=== PATIENT | female | born 1935 | race Caucasian/White ===

== ENCOUNTER 2017-07-25 04:32 | Emergency (ER) | payer OTHER ==
[~2017-07-25] VITALS: Ht 180.3 cm; Wt 71.2 kg
--- NOTE | 2017-07-25 04:40 | NUR ---
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 PER PT GRANDSON STATES PT ALTERED, LAST WELL KNOWN TIME WAS MIDNIGHT. FIELD BS 170. PT IS AAOX3. R FOREARM ABRASION NOTED. BACK OF HEAD BRUISING AND SWELLING NOTED. PT NOTED TO BE HARD OF HEARING. PT NOTED TO BE MOVING A LOT AND UNABLE TO FOLLOW SIMPLE COMMANDS. VSS. RESP EVEN AND UNLABORED. PT SAFETY AND COMFORT MEASURES IN PLACE. PT GOWNED AND PLACED ON MONITOR. BEDSIDE FOR EVAL.
--- NOTE | 2017-07-25 04:41 | NUR ---
PHLEBOTOMY BEDSIDE TO COLLECT BLOOD SPECIMEN.
--- NOTE | 2017-07-25 04:41 | NUR ---
PT STATES "MY STOMACH HURTS, ITS TENDER". PT NOTED TO BE GRIMACING AND RUBBING HER LOWER QUADRANTS OF THE ABD. MD LABOY MADE AWARE.
--- NOTE | 2017-07-25 04:50 | NUR ---
BLANKETS PROVIDED TO PT
[2017-07-25] MEDS ORDERED: CEFAZOLIN 1 GM ONE (04:57)
--- NOTE | 2017-07-25 04:58 | NUR ---
PER MD LABOY, OKAY GIVEN TO START ANTIBIOTICS WITHOUT PRIOR COLLECTION OF URINE.
[2017-07-25] MEDS ORDERED: CEFAZOLIN 1 GM in IV D5W 50 ML IV ONE (05:00)
[2017-07-25] MEDS ORDERED: IV NS 0.9% 500 ML BAG IV ONE (05:00)
--- NOTE | 2017-07-25 05:04 | NUR ---
CALLED RADIOLOGY FOR CT/ XR
[2017-07-25 05:06] LABS: BASOPHILS # (AUTO) 0.1 /CMM (0.0-0.2); BASOPHILS % (AUTO) 1.1 % (0.0-2.0); EOSINOPHILS % (AUTO) 2.9 % (0.0-6.0); HEMATOCRIT 36 % (33-45); HEMOGLOBIN 11.9 g/dL (11.5-14.8); LYMPHOCYTES % (AUTO) 22.2 % (20.0-44.0); MEAN CORPUSCULAR HGB CONC 33 g/dl (31.0-36.0); MEAN CORPUSCULAR VOLUME 87 fL (82-100); MONOCYTES # (AUTO) 0.9 /CMM (0.1-1.30); MONOCYTES % (AUTO) 10.5 % (2.0-12.0); NEUTROPHILS # (AUTO) 5.6 /CMM (1.8-8.9); NEUTROPHILS % (AUTO) 63.3 % (43.0-81.0); PLATELET COUNT (AUTO) 281 /CMM (150-450); RDW COEFFICIENT OF VARIATION 14.9 (11.5-15.0); RED BLOOD CELL COUNT(AUTO) 4.13 MIL/uL (4.0-5.2); WHITE BLOOD COUNT (AUTO) 8.9 K/uL (4.3-11.0)
--- NOTE | 2017-07-25 05:10 | NUR ---
PER MD LBAOY, URINE SAMPLE NOT REQUIRED AT THIS TIME.
[2017-07-25 05:17] LABS: CALCIUM, SERUM 10.1 mg/dL (8.5-10.1); CARBON DIOXIDE 28 mmol/L (21-32); CHLORIDE 104 mmol/L (98-107); CREATININE 0.9 mg/dL (0.6-1.3); GLUCOSE 130 mg/dL (74-106); POTASSIUM 4.2 mmol/L (3.5-5.1); SODIUM SERUM 143 mmol/L (136-145); UREA NITROGEN, BLOOD 25 mg/dL (7-18)
[2017-07-25 05:22] LABS: ALANINE AMINOTRANSFERASE 40 U/L (12-78); ALBUMIN 3.5 g/dL (3.4-5.0); ALCOHOL, BLOOD < 3 mg/dL (0-0); ALKALINE PHOSPHATASE 125 U/L (46-116); ASPARTATE AMINOTRANSFERASE 34 U/L (15-37); BILIRUBIN,DIRECT 0.1 mg/dL (0.0-0.2); BILIRUBIN,TOTAL 0.5 mg/dL (0.2-1.0); TOTAL PROTEIN, SERUM 7.2 g/dL (6.4-8.2)
[2017-07-25 05:24] LABS: TROPONIN I < 0.017 ng/mL (0.00-0.056)
--- NOTE | 2017-07-25 05:33 | NUR ---
FAMILY AT BEDSIDE. DR. LABOY MADE AWARE
--- NOTE | 2017-07-25 05:36 | NUR ---
PT TO CT
[2017-07-25 05:51] LABS: INR 0.97 (0.87-1.13)
--- NOTE | 2017-07-25 05:58 | NUR ---
PT BACK FROM CT
--- NOTE | 2017-07-25 06:19 | NUR ---
DAIRY FARMER BEDSIDE FOR X-RAY
--- NOTE | 2017-07-25 06:40 | NUR ---
PT CHANGED INTO NEW DIAPER AND SHEET. PT RESTING COMFORTABLY IN BED WITH NO S/S OF DISTRESS NOTED. VSS
--- NOTE | 2017-07-25 07:20 | NUR ---
RECEIVED REPORT FROM STEPHANE TRAN, LOCO NOT NEEDED, WAITING FOR IMAGING REPORT AND TO BE PRESENTED TO ANNETTE
--- NOTE | 2017-07-25 07:22 | NUR ---
REPORT GIVEN TO MARC HOGAN FOR JOSH
--- NOTE | 2017-07-25 08:00 | NUR ---
Called [facility] for transfer
--- NOTE | 2017-07-25 09:30 | NUR ---
DIAPER CHANGED, REPOSITION FOR COMFORT, DAUGHTER AT BEDSIDE
[2017-07-25 10:18] LABS: APPEARANCE,URINE Clear (CLEAR); BILIRUBIN,URINE Negative (NEGATIVE); BLOOD, URINE Negative Ery/uL (NEGATIVE); COLOR,URINE Yellow (YELLOW); KETONES,URINE Negative (NEGATIVE); LEUKOCYTE ESTERASE ,URINE Negative (NEGATIVE); NITRITE, URINE Negative (NEGATIVE); PH,URINE 8.5 (5.0-8.0); PROTEIN,URINE Negative (NEGATIVE); UGLUCOSE Negative (NEGATIVE); UROBILINOGEN,URINE 0.2 EU/dL (0.2)
[2017-07-25 11:20] VITALS: BP 135/88
--- NOTE | 2017-07-25 11:38 | NUR ---
REPORT GIVEN TO ALIDA TRAN AND EMT FOR JOSH.
== END 2017-07-25 11:43 | disposition short-term general hospital (02) ==
LOC: ER 04:34
DX: S51.811A Laceration without foreign body of right forearm, initial encounter (principal); S00.03XA Contusion of scalp, initial encounter; W18.30XA Fall on same level, unspecified, initial encounter; Y93.89 Activity, other specified; Y92.89 Other specified places as the place of occurrence of the external cause; Y99.8 Other external cause status
CPT/HCPCS: 36415; 70450-TC; 72125-TC; 72170-TC; 73090-TC; 80048-TC; 80076-TC; 80162-TC; 81000-TC; 84484-TC; 85025-TC; 85730-TC; A4606; A6402; G0480; J0690; J7040; J7060; L0172; Z7610

== ENCOUNTER 2017-11-22 15:12 | Emergency (ER) | payer OTHER ==
[~2017-11-22] VITALS: Ht 170.2 cm; Wt 69.9 kg
--- NOTE | 2017-11-22 15:17 | NUR ---
ASSUME PT CARE. CAREGIVER AND ROOM MATE AT BEDSIDE STATING PT APPEARS TO BE "OFF'' TODAY. C/O OF NAUSEA AND HEADACHE. AT AROUND 1400 ROOM MATE DISCOVERED PT AT THE BATHROOM. POSSIBLE SYNCOPE. NO OBVIOUS HEAD TRAUMA. PLACED ON MONITOR. AWATING MD MASSEY.
--- NOTE | 2017-11-22 15:27 | NUR ---
DR NICHOLSON AT BEDSIDE FOR EVAL.
[2017-11-22] MEDS: IV NS 0.9% 500 ML BAG IV ONE ×2 (15:30→16:50)
[2017-11-22] MEDS ORDERED: ONDANSETRON HCL/PF 4 MG/2 ML VIAL IVP ONE (15:30)
[2017-11-22] MEDS ORDERED: MORPHINE SULFATE INJ 2 MG/ML DISP.SYRIN IV ONE ×2 (15:30→18:30)
[2017-11-22 15:52] LABS: BASOPHILS # (AUTO) 0.4 /CMM (0.0-0.2); BASOPHILS % (AUTO) 4.1 % (0.0-2.0); EOSINOPHILS % (AUTO) 0.7 % (0.0-6.0); HEMATOCRIT 38 % (33-45); HEMOGLOBIN 12.2 g/dL (11.5-14.8); LYMPHOCYTES # (AUTO) 0.9 /CMM (0.8-4.8); LYMPHOCYTES % (AUTO) 10.8 % (20.0-44.0); MEAN CORPUSCULAR HEMOGLOBIN 28 PG (26.0-33.0); MEAN CORPUSCULAR HGB CONC 33 g/dl (31.0-36.0); MEAN CORPUSCULAR VOLUME 87 fL (82-100); MONOCYTES # (AUTO) 0.7 /CMM (0.1-1.30); MONOCYTES % (AUTO) 8.4 % (2.0-12.0); NEUTROPHILS # (AUTO) 6.5 /CMM (1.8-8.9); PLATELET COUNT (AUTO) 287 /CMM (150-450); RDW COEFFICIENT OF VARIATION 14.4 (11.5-15.0); RED BLOOD CELL COUNT(AUTO) 4.33 MIL/uL (4.0-5.2); WHITE BLOOD COUNT (AUTO) 8.6 K/uL (4.3-11.0)
[2017-11-22 16:02] LABS: CALCIUM, SERUM 9.7 mg/dL (8.5-10.1); CARBON DIOXIDE 30 mmol/L (21-32); CHLORIDE 106 mmol/L (98-107); CREATININE 0.6 mg/dL (0.6-1.3); GLUCOSE 114 mg/dL (74-106); POTASSIUM 4.1 mmol/L (3.5-5.1); SODIUM SERUM 141 mmol/L (136-145); UREA NITROGEN, BLOOD 20 mg/dL (7-18)
[2017-11-22 16:06] LABS: INR 0.95 (0.85-1.15)
[2017-11-22 16:08] LABS: ALANINE AMINOTRANSFERASE 35 U/L (12-78); ALBUMIN 3.4 g/dL (3.4-5.0); ALCOHOL, BLOOD < 3 mg/dL (0-0); ALKALINE PHOSPHATASE 115 U/L (46-116); ASPARTATE AMINOTRANSFERASE 31 U/L (15-37); BILIRUBIN,DIRECT 0.2 mg/dL (0.0-0.2); TOTAL PROTEIN, SERUM 6.7 g/dL (6.4-8.2)
[2017-11-22 16:09] LABS: TROPONIN I < 0.017 ng/mL (0.00-0.056)
--- NOTE | 2017-11-22 16:11 | NUR ---
PT TO RADIOLOGY FOR HEAD CT SCAN VIA [facility].
[2017-11-22] MEDS ORDERED: MORPHINE SULFATE INJ 2 MG/ML DISP.SYRIN ONE ×2 (16:45→18:25)
[2017-11-22] MEDS ORDERED: ONDANSETRON HCL/PF 4 MG/2 ML VIAL ONE (16:45)
--- NOTE | 2017-11-22 17:08 | NUR ---
CALLED [facility] AND SPOKE TO TENNIS RACKET REPAIRERBritni ADAMS FOR MD TO MD CALL BACK.
[2017-11-22 18:07] LABS: APPEARANCE,URINE Clear (CLEAR); BILIRUBIN,URINE Negative (NEGATIVE); BLOOD, URINE Trace-intact Ery/uL (NEGATIVE); COLOR,URINE Yellow (YELLOW); KETONES,URINE Trace (NEGATIVE); LEUKOCYTE ESTERASE ,URINE Negative (NEGATIVE); NITRITE, URINE Negative (NEGATIVE); PH,URINE 8.5 (5.0-8.0); PROTEIN,URINE Negative (NEGATIVE); UGLUCOSE Negative (NEGATIVE); UROBILINOGEN,URINE 0.2 EU/dL (0.2)
[2017-11-22 18:12] LABS: BACTERIA,URINE Few /HPF (None Seen); SQUAMOUS EPITHELIAL CELL,UR Few /HPF (None Seen)
[2017-11-22 18:24] LABS: THYROID STIMULATING HORMONE 0.258 uIU/mL (0.358-3.74)
--- NOTE | 2017-11-22 18:32 | NUR ---
PT APPEARS RESTLESS AGAIN. COMPLAINING TO CAREGIVER THAT SHE HAS LOWER BACK PAIN. DR NICHOLSON MADE AWARE. MEDICATED ORDERED. SEE EMAR.
[2017-11-22 19:10] VITALS: BP 117/56
--- NOTE | 2017-11-22 19:10 | NUR ---
REPORT GIVEN TO LENNY TRAN FOR JOSH.
--- NOTE | 2017-11-22 20:05 | NUR ---
CALLED [facility] SPOKE WITH SUPRIYA WE ARE AWAITING BED PLACEMENT OVER AT [facility] ACCEPTED BY DR DILLARD. [facility] WILL CALL BACK WITH AN UPDATE.
--- NOTE | 2017-11-22 21:00 | NUR ---
PER SHICKLEY EPRP, PT HAS BEEN ACCEPTED AT [facility], ASSIGNED TO ROOM#: 4051-B. PT HAS BEEN ACCEPTED UNDER DR. DILLARD. NUMBER FOR REPORT IS [phone] [facility] TRANSPORT ETA OF 2200.
== END 2017-11-22 23:10 | disposition short-term general hospital (02) ==
LOC: ER 15:17
DX: S80.12XA Contusion of left lower leg, initial encounter (principal); S80.11XA Contusion of right lower leg, initial encounter; S50.12XA Contusion of left forearm, initial encounter; R55 Syncope and collapse; M54.5 Low back pain; R60.0 Localized edema; I48.91 Unspecified atrial fibrillation; R47.01 Aphasia; G62.9 Polyneuropathy, unspecified; Z86.73 Personal history of transient ischemic attack (TIA), and cerebral infarction without residual deficits; Z85.118 Personal history of other malignant neoplasm of bronchus and lung; Z85.841 Personal history of malignant neoplasm of brain; Z87.442 Personal history of urinary calculi; Z85.3 Personal history of malignant neoplasm of breast; Z85.54 Personal history of malignant neoplasm of ureter; Z90.11 Acquired absence of right breast and nipple; Z90.5 Acquired absence of kidney; Z88.0 Allergy status to penicillin; Z88.5 Allergy status to narcotic agent; Z88.8 Allergy status to other drugs, medicaments and biological substances; Z88.1 Allergy status to other antibiotic agents; Z88.2 Allergy status to sulfonamides; W18.2XXA Fall in (into) shower or empty bathtub, initial encounter; Y93.89 Activity, other specified; Y92.89 Other specified places as the place of occurrence of the external cause; Y99.8 Other external cause status
CPT/HCPCS: 36415; 70450; 71045; 72125; 72131; 80048; 80076; 80305; 81001; 84443; 84484; 85025; 85730; 93005; 96374; 96375; 96376; 99285; A4606; G0480; J2270 ×2; J2405; J7040; 81000-TC; Z7610